=== PATIENT | female | born 2000 | race Caucasian/White ===

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

== ENCOUNTER 2022-05-17 15:39 | Emergency (ER) | payer OTHER ==
[~2022-05-17] VITALS: Ht 157.5 cm; Wt 69.6 kg
[2022-05-17 18:12] LABS: INR 1.03; PROTHROMBIN TIME 13.7 SECONDS (12.5-14.5)
[2022-05-17 18:13] LABS: PARTIAL THROMBOPLASTIN TIME 28.4 SECONDS (24.8-34.2)
[2022-05-17 18:16] LABS: BASO % 0.3 % (0.0-1.0); EOS # 0.1 10^3/uL (0.0-0.5); EOS % 1.3 % (0.0-3.0); HEMATOCRIT 37.8 % (36.0-47.0); HEMOGLOBIN 13.3 g/dl (12.0-15.5); LYMPH # 3.1 10^3/uL (1.5-5.0); LYMPH % 40.1 % (24.0-44.0); MEAN CORPUSCULAR HEMOGLOBIN 31.6 pg (27.0-33.0); MEAN CORPUSCULAR HGB CONC 35.2 g/dl (32.0-36.5); MEAN CORPUSCULAR VOLUME 89.8 fl (80.0-96.0); MONO # 0.4 10^3/uL (0.0-0.8); MONO % 5.5 % (2.0-8.0); NEUTROPHILS % 52.5 % (36.0-66.0); PLATELET COUNT, AUTOMATED 189 10^3/uL (150-450); RED BLOOD COUNT 4.21 10^6/uL (4.00-5.40); WHITE BLOOD COUNT 7.7 10^3/uL (4.0-10.0)
[2022-05-17 18:20] LABS: ALBUMIN 3.8 G/DL (3.2-5.2); ALKALINE PHOSPHATASE 59 U/L (46-116); ALT/SGPT 19 U/L (7.0-40); AST/SGOT 20 U/L (<34); BILIRUBIN,DIRECT < 0.1 MG/DL (<0.4); BILIRUBIN,TOTAL 0.3 MG/DL (0.3-1.2); BLOOD UREA NITROGEN 10 MG/DL (9-23); CARBON DIOXIDE LEVEL 25 MMOL/L (20-31); CHLORIDE LEVEL 108 MMOL/L (98-107); CREATININE FOR GFR 0.73 MG/DL (0.55-1.30); GLUCOSE, FASTING 104 MG/DL (60-100); POTASSIUM SERUM 3.9 MMOL/L (3.5-5.1); SODIUM LEVEL 141 MMOL/L (136-145); TOTAL PROTEIN 6.4 G/DL (5.7-8.2)
[2022-05-17 18:30] VITALS: BP 135/73
== END 2022-05-17 18:31 | disposition home or self-care (01) ==
LOC: M ED 15:39
DX: R04.0 Epistaxis (principal)

== ENCOUNTER → 2022-06-22 | Outpatient (CLI) | payer OTHER ==
[2022-06-22 12:00] LABS: BASO % 0.1 % (0.0-1.0); EOS # 0.1 10^3/uL (0.0-0.5); EOS % 0.7 % (0.0-3.0); HEMOGLOBIN 13.9 g/dl (12.0-15.5); LYMPH # 2.3 10^3/uL (1.5-5.0); MEAN CORPUSCULAR HEMOGLOBIN 32.1 pg (27.0-33.0); MEAN CORPUSCULAR HGB CONC 34.8 g/dl (32.0-36.5); MEAN CORPUSCULAR VOLUME 92.4 fl (80.0-96.0); MONO # 0.3 10^3/uL (0.0-0.8); NEUTROPHILS # 4.1 10^3/uL (1.5-8.5); NEUTROPHILS % 60.1 % (36.0-66.0); PLATELET COUNT, AUTOMATED 218 10^3/uL (150-450); RED BLOOD COUNT 4.33 10^6/uL (4.00-5.40); WHITE BLOOD COUNT 6.8 10^3/uL (4.0-10.0)
[2022-06-22 12:13] LABS: INR 0.99; PROTHROMBIN TIME 13.3 SECONDS (12.5-14.5)
[2022-06-22 12:14] LABS: PARTIAL THROMBOPLASTIN TIME 29.5 SECONDS (24.8-34.2)
[2022-06-22 12:40] LABS: COLLAGEN EPINEPHRINE 162 SECONDS (74-162)
== END ==
LOC: M PLALAB 10:00
PROVIDERS: ATTEND Internal Medicine Hematology
DX: D69.9 Hemorrhagic condition, unspecified (principal)

== ENCOUNTER 2022-12-13 15:58 | Emergency (ER) | payer OTHER ==
[~2022-12-13] VITALS: Ht 157.5 cm; Wt 73.8 kg
[2022-12-13] MEDS ORDERED: NS 1,000 ML IV ONE ×2 (18:30→18:35)
[2022-12-13] MEDS ORDERED: MORPHINE 2 MG/ML 1ML VIAL IV ONE (18:40)
[2022-12-13] MEDS ORDERED: ONDANSETRON 4MG 2ML VIAL IV ONE (18:40)
[2022-12-13 18:54] LABS: BASO % 0.2 % (0.0-1.0); EOS # 0.1 10^3/uL (0.0-0.5); EOS % 0.8 % (0.0-3.0); HEMATOCRIT 39.7 % (36.0-47.0); HEMOGLOBIN 13.6 g/dl (12.0-15.5); LYMPH # 4.9 10^3/uL (1.5-5.0); LYMPH % 41.7 % (24.0-44.0); MEAN CORPUSCULAR HEMOGLOBIN 31.2 pg (27.0-33.0); MEAN CORPUSCULAR HGB CONC 34.3 g/dl (32.0-36.5); MEAN CORPUSCULAR VOLUME 91.1 fl (80.0-96.0); MONO # 0.7 10^3/uL (0.0-0.8); MONO % 5.5 % (2.0-8.0); NEUTROPHILS # 6.1 10^3/uL (1.5-8.5); NEUTROPHILS % 51.5 % (36.0-66.0); PLATELET COUNT, AUTOMATED 259 10^3/uL (150-450); RED BLOOD COUNT 4.36 10^6/uL (4.00-5.40); WHITE BLOOD COUNT 11.8 10^3/uL (4.0-10.0)
[2022-12-13 19:07] LABS: INR 1.15; PROTHROMBIN TIME 14.4 SECONDS (12.5-14.5)
[2022-12-13 19:08] LABS: PARTIAL THROMBOPLASTIN TIME 23.2 SECONDS (24.8-34.2)
[2022-12-13] MEDS ORDERED: ISOVUE-370 76% 100ML VIAL As Ordered ONE (19:10)
[2022-12-13 19:18] LABS: ALBUMIN 3.7 G/DL (3.2-5.2); BILIRUBIN,DIRECT 0.1 MG/DL (<0.4); BILIRUBIN,TOTAL 0.4 MG/DL (0.3-1.2); TOTAL PROTEIN 6.6 G/DL (5.7-8.2)
[2022-12-13 19:20] LABS: RSV AMPLIFICATION NEGATIVE (NEGATIVE)
[2022-12-13 20:30] VITALS: BP 111/65; TEMP 98.9
[2022-12-13] MEDS ORDERED: LIDO5TD TOP (20:31)
[2022-12-13] MEDS ORDERED: HYDR-3713 PO (20:31)
[2022-12-13] MEDS ORDERED: NORCO 5/325MG TABLET (HOME DOSE PACK) PO ONE (20:35)
[2022-12-13] MEDS ORDERED: LIDOCAINE 5% (LIDODERM) PATCH TD ONE (20:35)
[2022-12-13 20:45] VITALS: O2SAT 84
== END 2022-12-13 21:00 | disposition home or self-care (01) ==
LOC: M ED 15:58
DX: R55 Syncope and collapse (principal); M53.3 Sacrococcygeal disorders, not elsewhere classified; Y92.009 Unspecified place in unspecified non-institutional (private) residence as the place of occurrence of the external cause; Y93.K3 Activity, grooming and shearing an animal; Y99.9 Unspecified external cause status; Z79.1 Long term (current) use of non-steroidal anti-inflammatories (NSAID); Z79.899 Other long term (current) drug therapy
CPT/HCPCS: 70450; 71260; 72125; 72220; 74177; 80047; 80076; 82150; 83690; 84702; 85025; 85610; 85730; 86850; 86900; 86901; 87631; 93005; 93041; 94760; 96361; 96374; 99285; J2405; Q9967